=== PATIENT | male | born 1990 ===

== ENCOUNTER 2016-06-26 12:44 | Emergency (ER) | payer SELFPAY ==
[2016-06-26] MEDS ORDERED: BACITRACIN 1 APP/PKT PKT TOPICAL ONE (13:59)
--- NOTE | 2016-06-26 13:59 | RADIOLOGY REPORT ---
Three views of the right hand demonstrate a comminuted intraarticular fracture involving the proximal portion of the right fifth metacarpal. There is an approximate 3 cm stepoff in the articular surface. No other abnormality is identified. The remainder of the bony structures and joints appear unremarkable. IMPRESSION: Comminuted impacted intraarticular fracture involving the proximal portion of the right fifth metacarpal. MTDD
--- NOTE | 2016-06-26 14:18 | ER PHYSICIAN DOCUMENTATION ---
Physician Documentation [facility] Name:Lev Henderson Age:25 yrs Sex:Male :1990 Arrival Date:06/26/2016 Time:12:44 Bed6 Private MD: Osito Gale Disposition: 06/26/16 14:08 Discharged to Home/Self Care. Impression: Base of Metacarpal Fracture. - Condition is Good. - Discharge Instructions: FRACTURE, Hand [Closed], Air Splints - SPLINT CARE, Fiberglass. - Prescriptions for Hydrocodone- Acetaminophen 5-325 mg Oral Tablet - take 1 tablet by ORAL route every 6 hours As needed; 20 tablet. - Medical Reconciliation form form. - Follow up: Private Physician; When: 4- 6 days; Reason: Recheck today's complaints, Continuance of care. - Problem is new. - Symptoms have improved. - Notes: Ice and elevate for 2 - 3 days. Take Ibuprofen 600mg by mouth every 6 hours with food for pain Take Vicodin 1 tab by mouth every 4 - 6 hours with food as needed for severe pain. Follow up with an Orthopedic Surgeon within 4 - 6 days... Maintain splint until seen by Orthopedic Surgeon.... HPI: 06/26 13:10 This 25 yrs old Unknown Male presents to ER via Walk In with complaints of Hand Injury cd - R. 13:10 The patient or guardian reports an abrasion, a contusion. The complaints affect the cd right hand diffusely. Context: The problem was sustained at home, resulted from using own fist to strike, a solid object. Onset: The symptom(s)/episode began/occurred acutely, last night. Associated signs and symptoms: The patient has no apparent associated signs or symptoms. Historical: - Allergies: No known drug Allergies; - PMHx: None; - Tetanus: < 10 years. - Ebola Screening: : Patient negative for fever greater than or equal to 101.5 degrees Fahrenheit, and additional compatible Ebola Virus Disease symptoms. Patient denies exposure to infectious person. Patient denies travel to an Ebola-affected area in the 21 days before illness onset. No symptoms or risks identified at this time. . - Immunization history: Pneumococcal vaccine is not up to date, Flu Vaccine None. - Social history: Smoking status: Patient states was never smoker of tobacco. Patient uses marijuana. - Code Status:: Full code. ROS: 13:10 MS/extremity: Positive for abrasion, contusion, decreased range of motion, swelling, cd tenderness, of the right hand. 13:10 All other systems are negative. Exam: 13:10 Constitutional: The patient appears alert, awake, non-diaphoretic, well developed, well cd nourished, anxious, in obvious distress, mildly distressed. 13:10 Musculoskeletal/extremity: Extremities: grossly normal except: noted in the right hand: contusion, decreased ROM, swelling, tenderness, ROM: limited passive range of motion due to pain, Circulation is intact in all extremities. Sensation intact. Tendon exam: specific tendon testing normal through active and passive range of motion 13:10 Skin: Appearance: normal except for affected area, injury, abrasion(s), very small abrasion noted, of the right hand. Vital Signs: 12:50 BP 173 / 92; Pulse 95; Resp 14; Temp 98.6; Pulse Ox 95% on R/A; Weight 74.84 kg; Height ke 5 ft. 9 in. (175.26 cm); Pain 5/10; 14:15 BP 142 / 76; Pulse 72; Resp 14; ke 12:50 Body Mass Index 24.37 (74.84 kg, 175.26 cm) ke Procedures: 13:30 Splinting: Splint applied to right arm using Orthoglass splint, applied by myself. cd Examined by me, post splint application: neurovascular intact, Patient tolerated well. MDM: 13:00 Data interpreted: Pulse oximetry: on room air is 95 %. Interpretation: normal. cd 13:08 Differential diagnosis: dislocation, closed fracture, contusion. cd 14:00 Data reviewed: vital signs, nurses notes, old medical records, radiologic studies, and cd as a result, I will discharge patient. 14:05 Counseling: I had a detailed discussion with the patient and/or guardian regarding: the cd historical points, exam findings, and any diagnostic results supporting the discharge/admit diagnosis, radiology results, the need for outpatient follow up, for a referral to a specialist, a hand specialist, a orthopedic surgeon, to return to the emergency department if symptoms worsen or persist or if there are any questions or concerns that arise at home. Response to treatment: the patient's symptoms have markedly improved after treatment, the patient's condition has returned to base line, the patient is now symptom free, and as a result, I will discharge patient. 14:06 Patient medically screened. 06/26 14:01 Order name: HAND; [address] [place] [id number]; Complete Time: 15:27 EDCA 06/26 15:27 Interpretation: Abnormal: Agree, See Report. 06/26 14:08 Order name: ORTHO: Arm Sling; Complete Time: 14:08 ke Dispensed Medications: 13:46 Drug: Neosporin Ointment 1 application; Route: Topical; Site: affected area; ke Signatures: Osito Thacker MD MD cd Evens, Kerry RN RN Mansi Corral
--- NOTE | 2016-06-26 14:18 | ER NURSING DOCUMENTATION ---
Nurse's Notes [facility] Name:Lev Henderson Age:25 yrs Sex:Male :1990 Arrival Date:06/26/2016 Time:12:44 Bed6 Private MD: Diagnosis:Base of Metacarpal Fracture Presentation: 06/26 12:50 Acuity: ANTIONE 4 13:00 Presenting complaint: Patient states: Pt. states that yesterday he was angry and ke punched multiple stationary objects with his right fist. Pain and swelling to right hand/wrist worse today. Point tenderness to all metatarsals and tarsal bones except thumb. No point tenderness to wrist, but has pain with movement. CMS intact to all fingers. Transition of care: Home. Notified ED Physician of Dr. Thacker notified. 13:00 Method Of Arrival: Walk In Triage Assessment: 12:55 General: Appears uncomfortable, well developed, well nourished, well groomed, Behavior ke is cooperative, pleasant, quiet. Pain: Complains of pain in right hand and right wrist Quality of pain is described as aching, tender, throbbing, Pain began 1 day ago. EENT: Eyes Nares are clear Oral mucosa is moist. Throat is clear is pink. Neuro: Level of Consciousness is awake, alert, Oriented to person, place, time, event, Speech is normal. Cardiovascular: Capillary refill is brisk Heart tones S1 S2 present Pulses are all present. Respiratory: Airway is patent Trachea midline Breath sounds are clear bilaterally. GI: Abdomen is flat, non- distended Bowel sounds present X 4 quads. Abd is soft and non tender X 4 quads. : No deficits noted. Derm: Skin is intact. Musculoskeletal: Circulation, motion, and sensation intact Capillary refill is brisk Range of motion intact in IP of right thumb, MCP of right thumb, CMC of right thumb, DIP of right index finger, PIP of right index finger, MCP of right index finger, DIP of right middle finger, PIP of right middle finger, MCP of right middle finger, DIP of right ring finger, PIP of right ring finger, MCP of right ring finger, DIP of right little finger, PIP of right little finger and MCP of right little finger Swelling present in right hand. Injury Description: Abrasion sustained to dorsal aspect of proximal phalanx of right index finger, dorsal aspect of proximal phalanx of right middle finger, dorsal aspect of proximal phalanx of right ring finger, dorsal aspect of proximal phalanx of right little finger and dorsum of right hand. Historical: - Allergies: No known drug Allergies; - PMHx: None; - Tetanus: < 10 years. - Ebola Screening: : Patient negative for fever greater than or equal to 101.5 degrees Fahrenheit, and additional compatible Ebola Virus Disease symptoms. Patient denies exposure to infectious person. Patient denies travel to an Ebola-affected area in the 21 days before illness onset. No symptoms or risks identified at this time. . - Immunization history: Pneumococcal vaccine is not up to date, Flu Vaccine None. - Social history: Smoking status: Patient states was never smoker of tobacco. Patient uses marijuana. - Code Status:: Full code. Screenin:52 Infectious Disease Risk None. Abuse screen: Denies threats or abuse. Denies injuries ke from another. Nutritional screening: No deficits noted. Vital Signs: 12:50 BP 173 / 92; Pulse 95; Resp 14; Temp 98.6; Pulse Ox 95% on R/A; Weight 74.84 kg; Height ke 5 ft. 9 in. (175.26 cm); Pain 5/10; 14:15 BP 142 / 76; Pulse 72; Resp 14; ke 12:50 Body Mass Index 24.37 (74.84 kg, 175.26 cm) ke ED Course: 12:48 Patient arrived in ED. ama 12:50 Laurie Ureña, RN is Primary Nurse. ke 12:50 Triage completed. ke 12:55 Port Xray Completed. ms 13:[address] Thacker notified. ke 13:02 Valuables Remains with patient Patient has correct armband on for positive ke identification. Bed in low position. 13:03 Portable x-ray done. ke 13:03 Ice pack to injury. ke 13:52 Wound care to abrasion, was cleaned with Hibiclens, Bacitracin applied. ke 14:06 Osito Thacker MD is Attending Physician. cd 14:16 Ulnar gutter splint applied on right forearm. To include lateral hand - Dr. Kirstie penny applied. Administered Medications: 13:46 Drug: Neosporin Ointment 1 application; Route: Topical; Site: affected area; ke Outcome: 14:08 Discharge ordered by . cd 14:16 Discharged to home ambulatory. ke 14:16 Condition: good 14:16 Discharge instructions given to patient, Instructed on follow up and referral plans. no drinking with medication, no driving heavy equipment, Ortho Care 14:17 Patient left the ED. ke 06/27 11:40 Discharge F/U Call: Unable to reach: no answer st 06/28 09:37 Discharge F/U Call: Unable to reach: no answer st Signatures: Aletha Subramanian, RN RN Osito Whitman MD MD cd Strickland, Mary ms Averdick, Andrew, Reg Reg Laurie Sarkar, RN SHAINA penny
== END 2016-06-26 14:18 | disposition home or self-care (01) ==
LOC: ER 12:44
DX: S62.346A Nondisplaced fracture of base of fifth metacarpal bone, right hand, initial encounter for closed fracture (principal); S60.221A Contusion of right hand, initial encounter; S60.511A Abrasion of right hand, initial encounter; W22.8XXA Striking against or struck by other objects, initial encounter
CPT/HCPCS: 29125; 99284